=== PATIENT | male | born 1945 | race Caucasian/White ===

== ENCOUNTER 2018-08-30 09:00 | Inpatient (IN) ==
[~2018-08-30 09:00] MED LIST: ALLOPURINOL 300 MG TABLET PO SCH; CEFUROXIME INJ 1,500 MG in SYRINGE 1 EACH IV ONE; CHLORHEXIDINE 4% SOLN 118 ML BOTTLE TOP SCH; CLORAZEPATE 3.75 MG TABLET PO PRN; DEXTROSE 50% 25 GM/50 ML VIAL IV PRN; GLUCAGON 1 MG VIAL IM PRN; HYDROCHLOROTHIAZIDE PO SCH; MOEXIPRIL PO SCH; NAPROXEN 500 MG TABLET PO SCH; ZALEPLON 5 MG CAPSULE PO PRN; sitaGLIPtin 25 MG TABLET PO SCH
[2018-08-30 10:04] LABS: Basophils # 0.1 10*3/uL (0.0-0.2); Basophils % 1.3 % (0.0-0.8); Eosinophils # 0.2 10*3/uL (0.0-0.87); Eosinophils % 2.4 % (0.00-10.9); Immature Granulocytes % 0.5 %; Immature Granulocytes Absolute 0.04 #; Lymphocytes % 25.8 % (21.2-54.2); Mean Corpuscular HGB Conc 32.6 GM/DL (32-36); Mean Corpuscular Volume 86.9 FL (87-102); Mean Platelet Volume 12.3 FL (9.6-12.0); Monocytes % 8.9 % (1.7-12.7); Neutrophils % 61.1 % (38.7-73.9); Platelet Count 191 T/CUMM (130-400); Red Blood Count 4.95 MC/CUMM (3.8-5.5); Red Cell Distribution Width 14.4 % (9.3-17.3); White Blood Count 7.9 T/CUMM (4-12)
[2018-08-30 10:23] LABS: Albumin 3.3 G/DL (3.4-5.0); Bilirubin,Total 0.6 MG/DL (0.2-1.0); Calcium 8.9 MG/DL (8.5-10.1); Osmolality,Calculated 287.7 MOS/KG (273-304); Total Protein 7.5 G/DL (6.4-8.3)
[2018-08-30] MEDS: SODIUM CHLORIDE 0.9% 1,000 ML IV SCH (10:40)
[2018-08-30] MEDS: CHLORHEXIDINE 0.12% ORAL RINSE 60 ML BOTTLE SWISH/SPIT SCH ×2 (10:44→21:03)
[2018-08-30 14:44] LABS: ABG Base Excess 2.4 MMOL/L (-2.5-2.5); ABG HCO3 26.5 MMOL/L (20-26); ABG Oxygen Saturation 94.8 % (95-100); ABG PCO2 42.9 MM HG (35-48); ABG PH 7.413 (7.35-7.45); ABG TCO2 23.7 MMOL/L (23-27)
[2018-08-30] MEDS: CHLORHEXIDINE 4% SOLN 118 ML BOTTLE TOP SCH ×2 (15:06→21:03)
[2018-08-30] MEDS ORDERED: MAGNESIUM SULF RIDER 2 GM in PREMIX 1 EACH IV PRN (15:17)
[2018-08-30] MEDS ORDERED: MAGNESIUM SULF RIDER 4 GM in PREMIX 1 EACH IV PRN (15:46)
[2018-08-31] MEDS ORDERED: PAPAVERINE 60 MG/2 ML VIAL ONE (04:24)
[2018-08-31] MEDS ORDERED: VANCOMYCIN 1,000 MG VIAL ONE (04:25)
[2018-08-31] MEDS ORDERED: CEFUROXIME INJ 1,500 MG in SYRINGE 1 EACH IV ONE (05:00)
[2018-08-31] MEDS ORDERED: DIAZEPAM 5 MG TABLET PO ONE (05:41)
[2018-08-31] MEDS ORDERED: FAMOTIDINE 20 MG TABLET PO ONE (05:43)
[2018-08-31] MEDS: CHLORHEXIDINE 4% SOLN 118 ML BOTTLE TOP SCH ×2 (06:01→09:54)
[2018-08-31] MEDS ORDERED: SODIUM BICARBONATE 50 MEQ/50 ML VIAL IV ONE ×2 (07:26→11:05)
[2018-08-31] MEDS ORDERED: NITROPRUSSIDE 50 MG/2 ML VIAL ONE (07:26)
[2018-08-31] MEDS ORDERED: PHENYLEPHRINE DRIP 40 MG/250 ML PREMIX IV ONE (07:26)
[2018-08-31] MEDS ORDERED: CALCIUM CHLORIDE 1,000 MG/10 ML SYRINGE IV ONE (07:27)
[2018-08-31] MEDS ORDERED: POTASSIUM CHLORIDE RIDER 100 ML IV ONE (07:27)
[2018-08-31 07:49] LABS: ABG Base Excess 1.9 MMOL/L (-2.5-2.5); ABG HCO3 26.1 MMOL/L (20-26); ABG PCO2 36.8 MM HG (35-48); Glucose Heart Surgery 166 MG/DL (74-106); Hematocrit Heart Surgery 42.1 PERCENT (42-52); Hemoglobin Heart Surgery 13.7 G/DL (14.0-18.0); Ionized Calcium Arterial 1.14 MMOL/L (1.21-1.46); PCO2 Patient Temp Arterial 36.8 MMHG; Patient Temperature 37 CELCIUS; Potassium Heart/CVR 3.7 MMOL/L (3.5-5.1); Sodium Heart/CVR 137 MMOL/L (135-145)
[2018-08-31 08:16] LABS: Apearance,Urine CLEAR (Clear); Bilirubin,Urine Negative (Negative); Blood, Urine Small mg/dL (Negative); Glucose,Urine (UA) Negative (Negative); Ketones,Urine Negative (Negative); Mucus,Urine Occasional /LPF (Occasional); Nitrite,Urine Negative (Negative); Protein,Urine Negative; RBC,Urine <1 /HPF (0-4); Squamous Epithelial Cell,Urine Occasional /HPF (0-10); Urine Color Yellow (Yellow); Urine Specific Gravity 1.015 (1.001-1.035); Urine Urobilinogen < 2.0 EU/DL (0.2-1.0); WBC,Urine <1 /HPF (0-6)
[2018-08-31 09:26] LABS: Hematocrit Heart Surgery 30.1 PERCENT (42-52); Hemoglobin Heart Surgery 9.7 G/DL (14.0-18.0); PCO2 Patient Temp Venous 36.9 MM HG; PH Patient Temp Venous 7.452; PO2 Patient Temp Venous 43.1 MM HG; Potassium Heart/CVR 4.6 MMOL/L (3.5-5.1); VBG Base Excess 1.9 MEQ/L (0-4); VBG HCO3 25.9 MEQ/L (24-28); VBG Oxygen Saturation 85.3 %; VBG PCO2 40.6 MMHG (41-51); VBG PH 7.422; VBG PO2 49.4 MMHG (17-40)
[2018-08-31] MEDS ORDERED: PHENYLEPHRINE DRIP 20 MG/250 ML PREMIX IV ONE (09:44)
[2018-08-31] MEDS ORDERED: CALCIUM CHLORIDE 1,000 MG/10 ML VIAL IV ONE (09:44)
[2018-08-31] MEDS ORDERED: SEVOFLURANE 1 UNIT/15 MINUTE INH ONE (09:44)
[2018-08-31] MEDS ORDERED: HEPARIN/NACL 0.9% 2 UNITS/ML 500 ML IV ONE (09:44)
[2018-08-31] MEDS ORDERED: SUFentanil 250 MCG/5 ML AMP ONE (09:44)
[2018-08-31] MEDS ORDERED: MIDAZOLAM 10 MG/2 ML VIAL ONE ×2 (09:44→09:45)
[2018-08-31] MEDS ORDERED: SODIUM CHLORIDE 0.9% 1,000 ML IV ONE (09:45)
[2018-08-31] MEDS ORDERED: VECURONIUM 10 MG VIAL IV ONE (09:45)
[2018-08-31] MEDS ORDERED: LACTATED RINGERS 1,000 ML IV ONE (09:45)
[2018-08-31] MEDS ORDERED: AMINOCAPROIC ACID 5,000 MG/20 ML VIAL ONE (09:45)
[2018-08-31] MEDS ORDERED: PHENYLEPHRINE 1 MG/10 ML SYRINGE IV ONE (09:46)
[2018-08-31] MEDS: SODIUM CHLORIDE 0.9% 1,000 ML IV SCH (09:53)
[2018-08-31] MEDS: CHLORHEXIDINE 0.12% ORAL RINSE 60 ML BOTTLE SWISH/SPIT SCH ×2 (09:54→20:15)
[2018-08-31 09:57] LABS: PCO2 Patient Temp Venous 32.2 MM HG; PH Patient Temp Venous 7.486; PO2 Patient Temp Venous 38.4 MM HG; Potassium Heart/CVR 4.6 MMOL/L (3.5-5.1); VBG Base Excess 1.4 MEQ/L (0-4); VBG HCO3 25.4 MEQ/L (24-28); VBG Oxygen Saturation 83.8 %; VBG PCO2 37.2 MMHG (41-51); VBG PH 7.442; VBG PO2 47.2 MMHG (17-40)
[2018-08-31 10:34] LABS: Hematocrit Heart Surgery 33.5 PERCENT (42-52); Hemoglobin Heart Surgery 10.8 G/DL (14.0-18.0); PCO2 Patient Temp Venous 32.4 MM HG; PH Patient Temp Venous 7.482; PO2 Patient Temp Venous 39.2 MM HG; Potassium Heart/CVR 5.2 MMOL/L (3.5-5.1); VBG Base Excess 1.3 MEQ/L (0-4); VBG HCO3 25.2 MEQ/L (24-28); VBG Oxygen Saturation 80.2 %; VBG PH 7.467
[2018-08-31] MEDS ORDERED: MANNITOL 100 GM/500 ML BAG IV ONE (11:04)
[2018-08-31] MEDS ORDERED: ALBUMIN 25% 25 GM/100 ML VIAL IV ONE (11:05)
[2018-08-31] MEDS ORDERED: methylPREDNISolone SOD SUC 1,000 MG/8 ML VIAL ONE (11:05)
[2018-08-31] MEDS ORDERED: MAGNESIUM SULFATE 5 GM/10 ML VIAL IV ONE (11:05)
[2018-08-31] MEDS ORDERED: PROTAMINE SULFATE 50 MG/5 ML VIAL IV ONE ×3 (11:05→13:13)
[2018-08-31] MEDS ORDERED: PROTAMINE SULFATE 250 MG/25 ML VIAL IV ONE (11:05)
[2018-08-31] MEDS ORDERED: DEXTROSE 5% KCL 20 MEQ 20 MEQ/1,000 ML BAG IV ONE (11:05)
[2018-08-31] MEDS ORDERED: FUROSEMIDE 20 MG/2 ML VIAL ONE (11:05)
[2018-08-31] MEDS ORDERED: HEPARIN 10,000 UNIT/10 ML VIAL ONE (11:05)
[2018-08-31 11:11] LABS: ABG Base Excess -0.6 MMOL/L (-2.5-2.5); ABG HCO3 23.9 MMOL/L (20-26); ABG Oxygen Saturation 98.6 % (95-100); ABG PCO2 38.7 MM HG (35-48); ABG TCO2 21.5 MMOL/L (23-27); Glucose Heart Surgery 241 MG/DL (74-106); Hematocrit Heart Surgery 34.1 PERCENT (42-52); Ionized Calcium Arterial 1.19 MMOL/L (1.21-1.46); PCO2 Patient Temp Arterial 38.7 MMHG; Patient Temperature 37 CELCIUS; Sodium Heart/CVR 130 MMOL/L (135-145)
[2018-08-31] MEDS ORDERED: ACETAMINOPHEN 650 MG SUPP RECTAL PRN (12:35)
[2018-08-31] MEDS ORDERED: MIDAZOLAM 2 MG/2 ML VIAL IV PRN (12:35)
[2018-08-31] MEDS ORDERED: INSULIN REGULAR 100 UNIT/ML IV PRN (12:35)
[2018-08-31] MEDS ORDERED: ONDANSETRON 4 MG/2 ML VIAL IV PRN (12:35)
[2018-08-31] MEDS ORDERED: MORPHINE 10 MG/1 ML VIAL IV PRN (12:35)
[2018-08-31] MEDS ORDERED: LACTATED RINGERS 250 ML IV PRN (12:35)
[2018-08-31] MEDS ORDERED: MAGNESIUM SULF RIDER 4 GM in PREMIX 1 EACH IV PRN (12:35)
[2018-08-31] MEDS ORDERED: DEXTROSE 50% 25 GM/50 ML SYRINGE IV PRN ×2 (12:35)
[2018-08-31] MEDS ORDERED: MAGNESIUM SULF RIDER 2 GM in PREMIX 1 EACH IV PRN (12:35)
[2018-08-31] MEDS ORDERED: MIDAZOLAM 10 MG/2 ML VIAL IV PRN (12:35)
[2018-08-31] MEDS ORDERED: NITROPRUSSIDE 100 MG in DEXTROSE 5% 250 ML IV PRN (12:35)
[2018-08-31] MEDS ORDERED: VECURONIUM 10 MG VIAL IV PRN ×2 (12:35)
[2018-08-31] MEDS ORDERED: CALCIUM CHLORIDE 1,000 MG/10 ML SYRINGE IV PRN (12:35)
[2018-08-31] MEDS ORDERED: MORPHINE 4 MG/1 ML VIAL IV PRN (12:35)
[2018-08-31] MEDS ORDERED: INSULIN REGULAR 100 UNIT/ML IV ONE (12:35)
[2018-08-31] MEDS ORDERED: POTASSIUM CHLORIDE RIDER 10 MEQ in PREMIX 1 EACH IV PRN (12:35)
[2018-08-31 12:52] LABS: ABG Base Excess -2.8 MMOL/L (-2.5-2.5); ABG HCO3 22.1 MMOL/L (20-26); ABG Oxygen Saturation 98.1 % (95-100); ABG PCO2 41.7 MM HG (35-48); ABG PH 7.346 (7.35-7.45); ABG TCO2 20.5 MMOL/L (23-27); Glucose Heart Surgery 249 MG/DL (74-106); Hematocrit Heart Surgery 34.9 PERCENT (42-52); Hemoglobin Heart Surgery 11.3 G/DL (14.0-18.0); Potassium Heart/CVR 4.3 MMOL/L (3.5-5.1)
[2018-08-31 12:54] LABS: Basophils # 0.1 10*3/uL (0.0-0.2); Basophils % 0.6 % (0.0-0.8); Eosinophils # 0.1 10*3/uL (0.0-0.87); Eosinophils % 0.3 % (0.00-10.9); Immature Granulocytes % 1.1 %; Immature Granulocytes Absolute 0.18 #; Lymphocytes # 1.6 10*3/uL (1.4-4.0); Lymphocytes % 9.9 % (21.2-54.2); Mean Corpuscular HGB Conc 32.4 GM/DL (32-36); Mean Corpuscular Volume 88.8 FL (87-102); Monocytes % 4.2 % (1.7-12.7); Neutrophils % 83.9 % (38.7-73.9); Platelet Count 209 T/CUMM (130-400); Red Blood Count 3.83 MC/CUMM (3.8-5.5); Red Cell Distribution Width 14.3 % (9.3-17.3); White Blood Count 16.5 T/CUMM (4-12)
[2018-08-31 13:02] LABS: INR 1.1; PT Patient Result 11.9 SECS
[2018-08-31] MEDS: SODIUM CHLORIDE 0.45% 1,000 ML IV SCH ×2 (13:23)
[2018-08-31] MEDS: ALBUMIN 5% 12.5 GM in PREMIX 1 EACH IV PRN ×4 (13:24→19:15)
[2018-08-31] MEDS: PHENYLEPHRINE DRIP 40 MG/250 ML PREMIX IV PRN (13:25)
[2018-08-31 13:27] LABS: CKMB % 5.9 %
[2018-08-31] MEDS: POTASSIUM CHLORIDE RIDER 20 MEQ in PREMIX 1 EACH IV PRN ×2 (13:28→19:18)
[2018-08-31 13:32] LABS: Troponin I 7.52 NG/ML (0.00-0.045)
[2018-08-31 13:34] LABS: Bilirubin,Total 0.8 MG/DL (0.2-1.0); Calcium 8.9 MG/DL (8.5-10.1); Osmolality,Calculated 279.1 MOS/KG (273-304); Total Protein 5.9 G/DL (6.4-8.3)
[2018-08-31 14:13] LABS: ABG Base Excess -1.8 MMOL/L (-2.5-2.5); ABG HCO3 22.9 MMOL/L (20-26); ABG Oxygen Saturation 98.9 % (95-100); ABG PCO2 45.7 MM HG (35-48); ABG PH 7.334 (7.35-7.45); ABG TCO2 21.9 MMOL/L (23-27); Glucose Heart Surgery 271 MG/DL (74-106); Hematocrit Heart Surgery 34.9 PERCENT (42-52); Hemoglobin Heart Surgery 11.3 G/DL (14.0-18.0); Potassium Heart/CVR 5.1 MMOL/L (3.5-5.1)
[2018-08-31] MEDS: INSULIN REGULAR DRIP 100 ML IV SCH (14:18)
[2018-08-31 15:14] LABS: ABG Base Excess -1.6 MMOL/L (-2.5-2.5); ABG HCO3 23.1 MMOL/L (20-26); ABG Oxygen Saturation 99.3 % (95-100); ABG PCO2 38.8 MM HG (35-48); ABG PH 7.384 (7.35-7.45); ABG TCO2 20.7 MMOL/L (23-27); Glucose Heart Surgery 238 MG/DL (74-106); Hematocrit Heart Surgery 34.9 PERCENT (42-52); Hemoglobin Heart Surgery 11.3 G/DL (14.0-18.0); Potassium Heart/CVR 4.3 MMOL/L (3.5-5.1)
[2018-08-31 16:26] LABS: ABG Base Excess -2.6 MMOL/L (-2.5-2.5); ABG HCO3 22.2 MMOL/L (20-26); ABG Oxygen Saturation 98.2 % (95-100); ABG PCO2 39.5 MM HG (35-48); ABG PH 7.364 (7.35-7.45); ABG TCO2 20.3 MMOL/L (23-27); Glucose Heart Surgery 203 MG/DL (74-106); Hematocrit Heart Surgery 34.3 PERCENT (42-52); Hemoglobin Heart Surgery 11.1 G/DL (14.0-18.0)
[2018-08-31 19:12] LABS: ABG Base Excess -1.8 MMOL/L (-2.5-2.5); ABG Oxygen Saturation 98.8 % (95-100); ABG PCO2 39.4 MM HG (35-48); ABG PH 7.378 (7.35-7.45); ABG TCO2 20.8 MMOL/L (23-27); Glucose Heart Surgery 150 MG/DL (74-106); Hematocrit Heart Surgery 34.6 PERCENT (42-52); Hemoglobin Heart Surgery 11.2 G/DL (14.0-18.0); Potassium Heart/CVR 3.8 MMOL/L (3.5-5.1)
[2018-08-31] MEDS ORDERED: LACTATED RINGERS 1,000 ML IV PRN (20:00)
[2018-08-31] MEDS: CEFUROXIME INJ 1,500 MG in SYRINGE 1 EACH IV SCH (20:15)
[2018-08-31 22:14] LABS: Troponin I 7.29 NG/ML (0.00-0.045)
[2018-09-01] MEDS ORDERED: FUROSEMIDE 40 MG/4 ML VIAL IV PRN
[2018-09-01] MEDS: INSULIN REGULAR DRIP 100 ML IV SCH (00:11)
[2018-09-01 01:28] LABS: ABG Base Excess -1.9 MMOL/L (-2.5-2.5); ABG HCO3 22.9 MMOL/L (20-26); ABG Oxygen Saturation 98.6 % (95-100); ABG PCO2 41.8 MM HG (35-48); ABG PH 7.358 (7.35-7.45); ABG TCO2 21.4 MMOL/L (23-27); Glucose Heart Surgery 128 MG/DL (74-106); Hematocrit Heart Surgery 32.2 PERCENT (42-52); Hemoglobin Heart Surgery 10.4 G/DL (14.0-18.0); Potassium Heart/CVR 4.1 MMOL/L (3.5-5.1)
[2018-09-01 03:19] LABS: ABG Base Excess -1.8 MMOL/L (-2.5-2.5); ABG HCO3 22.9 MMOL/L (20-26); ABG Oxygen Saturation 98.2 % (95-100); ABG PH 7.358 (7.35-7.45); ABG TCO2 21.6 MMOL/L (23-27); Glucose Heart Surgery 114 MG/DL (74-106); Hematocrit Heart Surgery 30.4 PERCENT (42-52); Hemoglobin Heart Surgery 9.8 G/DL (14.0-18.0); Potassium Heart/CVR 4.1 MMOL/L (3.5-5.1)
[2018-09-01 03:37] LABS: Basophils % 0.1 % (0.0-0.8); Hematocrit 29.5 VOL% (42.0-52.0); Hemoglobin 9.5 GM/DL (14.0-18.0); Immature Granulocytes % 0.7 %; Immature Granulocytes Absolute 0.09 #; Lymphocytes # 0.7 10*3/uL (1.4-4.0); Lymphocytes % 5.2 % (21.2-54.2); Mean Corpuscular HGB Conc 32.2 GM/DL (32-36); Mean Corpuscular Volume 88.9 FL (87-102); Monocytes % 7.3 % (1.7-12.7); Neutrophils % 86.7 % (38.7-73.9); Platelet Count 184 T/CUMM (130-400); Red Blood Count 3.32 MC/CUMM (3.8-5.5); Red Cell Distribution Width 14.7 % (9.3-17.3); White Blood Count 13.4 T/CUMM (4-12)
[2018-09-01 03:49] LABS: Albumin 3.4 G/DL (3.4-5.0); Bilirubin,Direct 0.15 MG/DL (0.0-0.20); Bilirubin,Total 0.4 MG/DL (0.2-1.0); Calcium 8.4 MG/DL (8.5-10.1); Osmolality,Calculated 280.5 MOS/KG (273-304); Total Protein 6.1 G/DL (6.4-8.3)
[2018-09-01] MEDS: INSULIN LISPRO 100 UNIT/ML SUBCUT SCH ×3 (03:57→15:54)
[2018-09-01] MEDS ORDERED: INSULIN LISPRO 100 UNIT/ML SUBCUT SCH (06:00)
[2018-09-01] MEDS: ALBUMIN 5% 12.5 GM in PREMIX 1 EACH IV PRN (06:39)
[2018-09-01 06:52] LABS: Hematocrit 30.8 VOL% (42.0-52.0)
[2018-09-01 06:57] LABS: CKMB % 3.1 %
[2018-09-01 06:58] LABS: Troponin I 10.5 NG/ML (0.00-0.045)
[2018-09-01] MEDS: PHENYLEPHRINE DRIP 40 MG/250 ML PREMIX IV PRN (07:00)
[2018-09-01] MEDS: CEFUROXIME INJ 1,500 MG in SYRINGE 1 EACH IV SCH (09:13)
[2018-09-01] MEDS: CHLORHEXIDINE 0.12% ORAL RINSE 60 ML BOTTLE SWISH/SPIT SCH ×2 (09:17→21:38)
[2018-09-01] MEDS ORDERED: DEXTROSE 50% 25 GM/50 ML SYRINGE IV PRN ×2 (12:55)
[2018-09-01] MEDS ORDERED: ONDANSETRON 4 MG/2 ML VIAL IV PRN (12:55)
[2018-09-01] MEDS ORDERED: SODIUM CHLOR 0.45% KCL 20 MEQ 20 MEQ/1,000 ML BAG IV SCH (12:55)
[2018-09-01] MEDS ORDERED: MAGNESIUM SULF RIDER 4 GM in PREMIX 1 EACH IV PRN (12:55)
[2018-09-01] MEDS ORDERED: GLUCAGON 1 MG VIAL IM PRN ×2 (12:55)
[2018-09-01] MEDS ORDERED: MAGNESIUM SULF RIDER 2 GM in PREMIX 1 EACH IV PRN (12:55)
[2018-09-01] MEDS ORDERED: ALUMINUM/MAGNES/SIMETH MAX STR 30 ML UDCUP PO PRN (12:55)
[2018-09-01] MEDS ORDERED: ACETAMINOPHEN 325 MG TABLET PO PRN (12:55)
[2018-09-01 13:06] LABS: CKMB % 2.8 %
[2018-09-01] MEDS: MORPHINE 4 MG/1 ML VIAL IV PRN ×2 (13:06→15:54)
[2018-09-01 13:07] LABS: Troponin I 7.22 NG/ML (0.00-0.045)
[2018-09-01] MEDS: SODIUM CHLORIDE 0.45% 1,000 ML IV SCH ×2 (15:54→15:55)
[2018-09-01] MEDS: oxyCODONE/ACETAMINOPHEN 5-325 MG TABLET PO PRN (15:54)
[2018-09-01] MEDS ORDERED: CITALOPRAM 40 MG TABLET PO SCH (21:00)
[2018-09-01] MEDS: HYDROmorphone 2 MG/1 ML VIAL IV PRN (21:31)
[2018-09-01] MEDS: INSULIN GLARGINE 100 UNIT/ML SUBCUT SCH (21:35)
[2018-09-01] MEDS: MONTELUKAST 10 MG TABLET PO SCH (21:37)
[2018-09-01] MEDS: INSULIN REGULAR 100 UNIT/ML SUBCUT SCH (22:08)
[2018-09-02] MEDS: INSULIN REGULAR 100 UNIT/ML SUBCUT SCH ×6 (01:02→21:23)
[2018-09-02] MEDS: HYDROmorphone 2 MG/1 ML VIAL IV PRN (04:57)
[2018-09-02 05:36] LABS: Basophils % 0.1 % (0.0-0.8); Hematocrit 28.3 VOL% (42.0-52.0); Hemoglobin 8.9 GM/DL (14.0-18.0); Immature Granulocytes % 0.9 %; Immature Granulocytes Absolute 0.15 #; Lymphocytes % 5.7 % (21.2-54.2); Mean Corpuscular HGB Conc 31.4 GM/DL (32-36); Mean Corpuscular Volume 91.9 FL (87-102); Neutrophils % 83.3 % (38.7-73.9); Platelet Count 160 T/CUMM (130-400); Red Blood Count 3.08 MC/CUMM (3.8-5.5); White Blood Count 17.5 T/CUMM (4-12)
[2018-09-02] MEDS ORDERED: FUROSEMIDE 40 MG/4 ML VIAL IV ONE (06:00)
[2018-09-02 06:08] LABS: Bilirubin,Direct 0.11 MG/DL (0.0-0.20); Bilirubin,Indirect 0.7 MG/DL (0.0-1.0); Bilirubin,Total 0.8 MG/DL (0.2-1.0); Calcium 7.8 MG/DL (8.5-10.1)
[2018-09-02 06:09] LABS: CKMB % 1.4 %; Osmolality,Calculated 288.8 MOS/KG (273-304)
[2018-09-02 06:11] LABS: Troponin I 6.87 NG/ML (0.00-0.045)
[2018-09-02] MEDS: DOCUSATE SODIUM 100 MG CAPSULE PO SCH (11:35)
[2018-09-02] MEDS: ASPIRIN EC 325 MG TABLET PO SCH (11:35)
[2018-09-02] MEDS: CHLORTHALIDONE 25 MG TABLET PO SCH (11:36)
[2018-09-02] MEDS: PANTOPRAZOLE 40 MG TABLET PO SCH (11:36)
[2018-09-02] MEDS: FERROUS SULFATE 325 MG TABLET PO SCH (11:36)
[2018-09-02] MEDS: MAGNESIUM HYDROXIDE SUSP 30 ML UDCUP PO PRN (11:40)
[2018-09-02] MEDS: ATENOLOL 50 MG TABLET PO SCH (11:40)
[2018-09-02] MEDS: CHLORHEXIDINE 0.12% ORAL RINSE 60 ML BOTTLE SWISH/SPIT SCH ×2 (11:41→21:19)
[2018-09-02] MEDS ORDERED: AMIODARONE INJ 150 MG in DEXTROSE 5% 100 ML IV ONE (14:49)
[2018-09-02] MEDS ORDERED: DILTIAZEM 50 MG/10 ML VIAL IV ONE (14:51)
[2018-09-02] MEDS ORDERED: dilTIAZem Drip 125 MG/125 ML PREMIX IV SCH (15:00)
[2018-09-02] MEDS ORDERED: AMIODARONE INJ 450 MG in DEXTROSE 5% 241 ML IV SCH (15:00)
[2018-09-02] MEDS: oxyCODONE/ACETAMINOPHEN 5-325 MG TABLET PO PRN ×2 (16:28→21:19)
[2018-09-02] MEDS: MONTELUKAST 10 MG TABLET PO SCH (21:19)
[2018-09-02] MEDS: INSULIN GLARGINE 100 UNIT/ML SUBCUT SCH (21:58)
[2018-09-02] MEDS: ZALEPLON 5 MG CAPSULE PO PRN (23:27)
[2018-09-03] MEDS: INSULIN REGULAR 100 UNIT/ML SUBCUT SCH ×6 (02:41→21:10)
[2018-09-03 04:49] LABS: Basophils % 0.2 % (0.0-0.8); Eosinophils % 0.2 % (0.00-10.9); Hematocrit 47.2 VOL% (42.0-52.0); Immature Granulocytes % 0.5 %; Immature Granulocytes Absolute 0.03 #; Lymphocytes # 0.9 10*3/uL (1.4-4.0); Lymphocytes % 13.6 % (21.2-54.2); Mean Corpuscular HGB Conc 31.8 GM/DL (32-36); Mean Corpuscular Volume 90.6 FL (87-102); Monocytes % 8.9 % (1.7-12.7); Neutrophils % 76.6 % (38.7-73.9); Red Blood Count 5.21 MC/CUMM (3.8-5.5); Red Cell Distribution Width 15.2 % (9.3-17.3); White Blood Count 6.4 T/CUMM (4-12)
[2018-09-03 04:53] LABS: Platelet Count 90 T/CUMM (130-400)
[2018-09-03] MEDS: oxyCODONE/ACETAMINOPHEN 5-325 MG TABLET PO PRN (04:59)
[2018-09-03 05:10] LABS: Hypochromasia 1+; Platelet Estimate Decreased
[2018-09-03 05:29] LABS: Bilirubin,Direct 0.11 MG/DL (0.0-0.20); Bilirubin,Indirect 0.5 MG/DL (0.0-1.0); Bilirubin,Total 0.6 MG/DL (0.2-1.0); CKMB % 0.4 %; Calcium 8.2 MG/DL (8.5-10.1); Osmolality,Calculated 294.8 MOS/KG (273-304); Total Protein 6.7 G/DL (6.4-8.3)
[2018-09-03 05:33] LABS: Troponin I 5.14 NG/ML (0.00-0.045)
[2018-09-03] MEDS: ASPIRIN EC 325 MG TABLET PO SCH (09:16)
[2018-09-03] MEDS: DOCUSATE SODIUM 100 MG CAPSULE PO SCH (09:16)
[2018-09-03] MEDS: ATENOLOL 50 MG TABLET PO SCH (09:17)
[2018-09-03] MEDS: FERROUS SULFATE 325 MG TABLET PO SCH (09:17)
[2018-09-03] MEDS: CHLORTHALIDONE 25 MG TABLET PO SCH (09:17)
[2018-09-03] MEDS: PANTOPRAZOLE 40 MG TABLET PO SCH (09:17)
[2018-09-03] MEDS: MAGNESIUM HYDROXIDE SUSP 30 ML UDCUP PO PRN (09:18)
[2018-09-03] MEDS: CHLORHEXIDINE 0.12% ORAL RINSE 60 ML BOTTLE SWISH/SPIT SCH ×2 (09:23→21:08)
[2018-09-03] MEDS: AMIODARONE 200 MG TABLET PO SCH (09:54)
[2018-09-03] MEDS ORDERED: ALBUTEROL 0.63 MG/3 ML NEB RESP TX SCH (16:20)
[2018-09-03 17:14] LABS: Calcium 8.2 MG/DL (8.5-10.1)
[2018-09-03] MEDS: CLORAZEPATE 3.75 MG TABLET PO PRN ×2 (17:26→23:36)
[2018-09-03] MEDS: ALBUTEROL 2.5 MG/3 ML NEB RESP TX SCH (20:14)
[2018-09-03] MEDS: MONTELUKAST 10 MG TABLET PO SCH (21:08)
[2018-09-03] MEDS: INSULIN GLARGINE 100 UNIT/ML SUBCUT SCH (21:09)
[2018-09-03] MEDS: ZALEPLON 5 MG CAPSULE PO PRN (21:33)
[2018-09-04] MEDS: ALBUTEROL 2.5 MG/3 ML NEB RESP TX SCH ×7 (01:23→23:58)
[2018-09-04 04:14] LABS: Calcium 8.4 MG/DL (8.5-10.1); Osmolality,Calculated 287.8 MOS/KG (273-304)
[2018-09-04] MEDS: oxyCODONE/ACETAMINOPHEN 5-325 MG TABLET PO PRN ×2 (06:19→22:15)
[2018-09-04] MEDS ORDERED: FUROSEMIDE 40 MG/4 ML VIAL IV ONE (08:42)
[2018-09-04] MEDS: INSULIN REGULAR 100 UNIT/ML SUBCUT SCH ×4 (09:29→22:15)
[2018-09-04] MEDS: DOCUSATE SODIUM 100 MG CAPSULE PO SCH (09:30)
[2018-09-04] MEDS: ASPIRIN EC 325 MG TABLET PO SCH (09:30)
[2018-09-04] MEDS: AMIODARONE 200 MG TABLET PO SCH (09:30)
[2018-09-04] MEDS: FERROUS SULFATE 325 MG TABLET PO SCH (09:30)
[2018-09-04] MEDS: CHLORTHALIDONE 25 MG TABLET PO SCH (09:31)
[2018-09-04] MEDS: PANTOPRAZOLE 40 MG TABLET PO SCH (09:31)
[2018-09-04] MEDS: ATENOLOL 50 MG TABLET PO SCH (09:31)
[2018-09-04] MEDS: CHLORHEXIDINE 0.12% ORAL RINSE 60 ML BOTTLE SWISH/SPIT SCH ×2 (09:40→20:27)
[2018-09-04] MEDS: MONTELUKAST 10 MG TABLET PO SCH (20:27)
[2018-09-04] MEDS: INSULIN GLARGINE 100 UNIT/ML SUBCUT SCH (22:15)
[2018-09-05] MEDS: ZALEPLON 5 MG CAPSULE PO PRN (00:24)
[2018-09-05] MEDS: ALBUTEROL 2.5 MG/3 ML NEB RESP TX SCH ×6 (03:48→23:40)
[2018-09-05 04:51] LABS: Alanine Aminotransferase 34 U/L (16-61); Albumin 2.6 G/DL (3.4-5.0); Alkaline Phosphatase 106 U/L (45-117); Aspartate Amino Transferase 51 U/L (0-37); Bilirubin,Indirect 0.5 MG/DL (0.0-1.0); Blood Urea Nitrogen 54 MG/DL (7-18); Glucose 165 MG/DL (74-106); Total Protein 6.5 G/DL (6.4-8.3)
[2018-09-05] MEDS: FERROUS SULFATE 325 MG TABLET PO SCH (08:47)
[2018-09-05] MEDS: ATENOLOL 50 MG TABLET PO SCH (08:47)
[2018-09-05] MEDS: INSULIN REGULAR 100 UNIT/ML SUBCUT SCH ×4 (08:47→20:52)
[2018-09-05] MEDS: CHLORHEXIDINE 0.12% ORAL RINSE 60 ML BOTTLE SWISH/SPIT SCH ×2 (08:48→20:56)
[2018-09-05] MEDS: PANTOPRAZOLE 40 MG TABLET PO SCH (08:48)
[2018-09-05] MEDS: CHLORTHALIDONE 25 MG TABLET PO SCH (08:48)
[2018-09-05] MEDS: ASPIRIN EC 325 MG TABLET PO SCH (08:48)
[2018-09-05] MEDS: DOCUSATE SODIUM 100 MG CAPSULE PO SCH (08:48)
[2018-09-05] MEDS: POTASSIUM CHLORIDE 20 MEQ TABLET PO PRN ×3 (08:48→17:29)
[2018-09-05] MEDS: AMIODARONE 200 MG TABLET PO SCH (08:50)
[2018-09-05 10:18] LABS: Basophils # 0.1 10*3/uL (0.0-0.2); Basophils % 0.5 % (0.0-0.8); Eosinophils # 0.2 10*3/uL (0.0-0.87); Eosinophils % 2.4 % (0.00-10.9); Hemoglobin 8.8 GM/DL (14.0-18.0); Immature Granulocytes % 0.6 %; Immature Granulocytes Absolute 0.06 #; Lymphocytes # 1.6 10*3/uL (1.4-4.0); Lymphocytes % 16.4 % (21.2-54.2); Mean Corpuscular HGB Conc 32.6 GM/DL (32-36); Mean Platelet Volume 12.2 FL (9.6-12.0); Neutrophils % 70.1 % (38.7-73.9); Platelet Count 204 T/CUMM (130-400); Red Cell Distribution Width 14.6 % (9.3-17.3); White Blood Count 9.5 T/CUMM (4-12)
[2018-09-05] MEDS: oxyCODONE/ACETAMINOPHEN 5-325 MG TABLET PO PRN (14:25)
[2018-09-05] MEDS: INSULIN GLARGINE 100 UNIT/ML SUBCUT SCH (20:54)
[2018-09-05] MEDS: MONTELUKAST 10 MG TABLET PO SCH (20:56)
[2018-09-06 06:35] LABS: Basophils # 0.1 10*3/uL (0.0-0.2); Basophils % 0.6 % (0.0-0.8); Eosinophils # 0.4 10*3/uL (0.0-0.87); Eosinophils % 2.4 % (0.00-10.9); Hemoglobin 9.4 GM/DL (14.0-18.0); Immature Granulocytes % 1.5 %; Immature Granulocytes Absolute 0.22 #; Lymphocytes # 3.7 10*3/uL (1.4-4.0); Lymphocytes % 25.4 % (21.2-54.2); Mean Corpuscular HGB Conc 31.3 GM/DL (32-36); Mean Corpuscular Volume 90.6 FL (87-102); Mean Platelet Volume 11.8 FL (9.6-12.0); Monocytes % 10.2 % (1.7-12.7); Neutrophils % 59.9 % (38.7-73.9); Platelet Count 305 T/CUMM (130-400); Red Blood Count 3.31 MC/CUMM (3.8-5.5); Red Cell Distribution Width 14.6 % (9.3-17.3); White Blood Count 14.5 T/CUMM (4-12)
[2018-09-06 06:51] LABS: Alanine Aminotransferase 37 U/L (16-61); Albumin 2.8 G/DL (3.4-5.0); Alkaline Phosphatase 129 U/L (45-117); Aspartate Amino Transferase 39 U/L (0-37); Bilirubin,Indirect 0.3 MG/DL (0.0-1.0); Blood Urea Nitrogen 55 MG/DL (7-18); Calcium 8.6 MG/DL (8.5-10.1); Glucose 185 MG/DL (74-106); Osmolality,Calculated 289.1 MOS/KG (273-304); Total Protein 7.2 G/DL (6.4-8.3)
[2018-09-06] MEDS: INSULIN REGULAR 100 UNIT/ML SUBCUT SCH ×4 (09:02→21:28)
[2018-09-06] MEDS: DOCUSATE SODIUM 100 MG CAPSULE PO SCH (09:03)
[2018-09-06] MEDS: FERROUS SULFATE 325 MG TABLET PO SCH (09:03)
[2018-09-06] MEDS: ATENOLOL 50 MG TABLET PO SCH (09:03)
[2018-09-06] MEDS: ASPIRIN EC 325 MG TABLET PO SCH (09:03)
[2018-09-06] MEDS: CHLORHEXIDINE 0.12% ORAL RINSE 60 ML BOTTLE SWISH/SPIT SCH ×2 (09:04→21:29)
[2018-09-06] MEDS: BUDESONIDE/FORMOTEROL 160-4.5 INHALER 6 GM INH SCH ×2 (09:04→21:29)
[2018-09-06] MEDS: AMIODARONE 200 MG TABLET PO SCH (09:04)
[2018-09-06] MEDS: CHLORTHALIDONE 25 MG TABLET PO SCH (09:04)
[2018-09-06] MEDS: PANTOPRAZOLE 40 MG TABLET PO SCH (09:04)
[2018-09-06] MEDS: INSULIN GLARGINE 100 UNIT/ML SUBCUT SCH (21:28)
[2018-09-06] MEDS: MONTELUKAST 10 MG TABLET PO SCH (21:29)
[2018-09-07] MEDS: MAGNESIUM HYDROXIDE SUSP 30 ML UDCUP PO PRN (02:10)
[2018-09-07] MEDS: PANTOPRAZOLE 40 MG TABLET PO SCH (09:38)
[2018-09-07] MEDS: DOCUSATE SODIUM 100 MG CAPSULE PO SCH (09:38)
[2018-09-07] MEDS: ASPIRIN EC 325 MG TABLET PO SCH (09:38)
[2018-09-07] MEDS: ATENOLOL 50 MG TABLET PO SCH (09:39)
[2018-09-07] MEDS: CHLORTHALIDONE 25 MG TABLET PO SCH (09:39)
[2018-09-07] MEDS: INSULIN REGULAR 100 UNIT/ML SUBCUT SCH ×4 (09:39→20:52)
[2018-09-07] MEDS: CHLORHEXIDINE 0.12% ORAL RINSE 60 ML BOTTLE SWISH/SPIT SCH ×2 (09:40→20:51)
[2018-09-07] MEDS: AMIODARONE 200 MG TABLET PO SCH (09:41)
[2018-09-07] MEDS: FERROUS SULFATE 325 MG TABLET PO SCH (09:41)
[2018-09-07] MEDS: BUDESONIDE/FORMOTEROL 160-4.5 INHALER 6 GM INH SCH ×2 (09:42→20:51)
[2018-09-07] MEDS: MONTELUKAST 10 MG TABLET PO SCH (20:52)
[2018-09-07] MEDS: INSULIN GLARGINE 100 UNIT/ML SUBCUT SCH (20:52)
[2018-09-07] MEDS: ZALEPLON 5 MG CAPSULE PO PRN (23:20)
[2018-09-08] MEDS: oxyCODONE/ACETAMINOPHEN 5-325 MG TABLET PO PRN (00:55)
[2018-09-08 08:10] VITALS: BP 123/55
[2018-09-08] MEDS: PANTOPRAZOLE 40 MG TABLET PO SCH (09:31)
[2018-09-08] MEDS: INSULIN REGULAR 100 UNIT/ML SUBCUT SCH (09:31)
[2018-09-08] MEDS: ASPIRIN EC 325 MG TABLET PO SCH (09:31)
[2018-09-08] MEDS: ATENOLOL 50 MG TABLET PO SCH (09:31)
[2018-09-08] MEDS: DOCUSATE SODIUM 100 MG CAPSULE PO SCH (09:32)
[2018-09-08] MEDS: BUDESONIDE/FORMOTEROL 160-4.5 INHALER 6 GM INH SCH (09:32)
[2018-09-08] MEDS: CHLORTHALIDONE 25 MG TABLET PO SCH (09:32)
[2018-09-08] MEDS: CHLORHEXIDINE 0.12% ORAL RINSE 60 ML BOTTLE SWISH/SPIT SCH (09:32)
== END 2018-09-08 11:04 | disposition home health service (06) | DRG 236 ==
LOC: N.TELEN 09:00 → N.CVR 08-31 10:31 → N.TELES 09-01 10:15